=== PATIENT | male | born 1960 | race Caucasian/White ===

== ENCOUNTER 2018-11-30 13:59 | Outpatient (CLI) | payer OTHER ==
--- NOTE | 2018-11-30 14:53 | RAD ---
CERVICAL SPINE 5 VIEWS: Date: 11/30/18 HISTORY: Cervical radicular pain. FINDINGS: Cervical vertebra maintain height. Moderate degenerative changes seen. Prominent anterior osteophytes are noted at C4-5, C5-6, and C6-7. Posterolisthesis at C5-6 measured at approximately 2-3 mm. [employer] W[employer] ior spondylosis at C3-4, C4-5, and C5-6. Foraminal encroachment noted at these levels due to hypertro phic change. IMPRESSION: Moderate degenerative changes most pronounced at C4-5 and C5-6. POS: OFF
== END 2018-11-30 14:00 | disposition home or self-care (01) ==
LOC: MADRAD 13:59
PROVIDERS: ATTEND Family Medicine
DX: M47.22 Other spondylosis with radiculopathy, cervical region (principal)
CPT/HCPCS: 72050

== ENCOUNTER 2020-01-03 14:18 | Outpatient (CLI) | payer OTHER ==
[2020-01-03 14:48] LABS: Amphetamine Not Detected (NotDetected); Barbiturates Screen Not Detected (NotDetected); Benzodiazepine Screen Not Detected (NotDetected); Cocaine Metabolite Screen Not Detected (NotDetected); Methadone Not Detected (NotDetected); Methamphetamine Not Detected (NotDetected); Opiate Screen Not Detected (NotDetected); Phencyclidine (PCP) Not Detected (NotDetected); THC/Cannabinoid Screen Not Detected (NotDetected); Tricyclic Screen Not Detected (NotDetected)
[2020-01-03 14:49] LABS: Medtox Control Line Valid? VALID (VALID); Oxycodone Screen Not Detected (NotDetected)
[2020-01-03 14:56] LABS: ALT (SGPT) 46 U/L (8-55); AST (SGOT) 27 U/L (5-34); Albumin 4.5 g/dL (3.5-5.0); Alkaline Phosphatase 66 U/L (40-110); Anion Gap 17 mmol/L (10-20); BUN (Urea Nitrogen) 14 mg/dL (8.4-25.7); Bilirubin, Total 0.3 mg/dL (0.2-1.2); Calc. Creatinine Clearance 0 mL/min (70-130); Calcium 9.8 mg/dL (7.8-10.44); Carbon Dioxide 26 mmol/L (22-29); Chloride 99 mmol/L (98-107); Estimated GFR-MDRD 80; Globulin 3.4 g/dL (2.4-3.5); Glucose 241 mg/dL (70-105); Potassium 4.5 mmol/L (3.5-5.1); Protein, Total 7.9 g/dL (6.0-8.3); Sodium 137 mmol/L (136-145)
[2020-01-03 15:00] LABS: #Basophils 0.1 thou/uL (0.0-0.2); #Eosinphils 0.2 thou/uL (0.0-0.7); #Lymphocytes 2.2 thou/uL (1.20-3.40); #Monocytes 0.6 thou/uL (0.11-0.59); #Neutrophils 3.5 thou/uL (1.40-6.50); %Eosinophils 3.6 % (0.0-10.0); %Lymphocytes 32.8 % (21.0-51.0); %Monocytes 9.3 % (0.0-10.0); %Neutrophils 52.3 % (42.0-75.0); Hemoglobin 15.9 g/dL (14.0-18.0); MDiff Complete? YES; Mean Corpuscular HGB CONC 32.9 g/dL (32.0-36.0); Mean Corpuscular Hemoglobin 32.1 pg (27.0-31.0); Mean Corpuscular Volume 97.5 fL (78.0-98.0); Mean Platelet Volume 15.4 fL (7.4-10.4); Platelet Clumps SLIGHT; Platelet Count 195 thou/uL (130-400); Platelet Morphology Comment Appears Adequate; RBC Distribution Width 12.3 % (11.5-14.5); RBC Morphology Normal; Red Blood Cell (RBC) Count 4.95 mill/uL (4.70-6.10); White Blood Cell (WBC) Count 6.7 thou/uL (4.8-10.8)
[2020-01-03 15:12] LABS: Thyroid Stimulating Hormone 4.1412 uIU/mL (0.35-4.94)
[2020-01-03 22:24] LABS: Free T4 (Free Thyroxine) 0.85 ng/dL (0.70-1.48)
== END 2020-01-03 14:19 | disposition home or self-care (01) ==
LOC: MADLABBHPM 14:18
PROVIDERS: ATTEND Family Medicine
DX: R55 Syncope and collapse (principal)
CPT/HCPCS: 36415; 80053; 80306; 84439; 84443; 85025; 93005; 93010

== ENCOUNTER 2023-02-02 16:17 | Emergency (ER) | payer BC, OTHER | END 2023-02-02 17:05 | disposition home or self-care (01) | LOC: MADERS 16:17 | DX: T78.3XXA Angioneurotic edema, initial encounter (principal); I10 Essential (primary) hypertension; E11.9 Type 2 diabetes mellitus without complications | CPT/HCPCS: 99283 ==